=== PATIENT | female | born 1970 | race Caucasian/White ===

== ENCOUNTER 2017-01-03 23:59 | Emergency (ER) | payer MEDICAID ==
--- NOTE | ~2017-01-03 | ER ---
PATIENT'S NAME: KARYN YUSUF [facility] AGE: 46 Y [address] ROOM: [place] [id number] LOCATION: [facility] ADMIT DATE: 01/03/2017 ER/Outpatient Report DISCHARGE DATE: FAMILY PHYSICIAN: Ai Hernandez APRN ATTENDING PHYSICIAN: Iris Monroe HISTORY OF PRESENT ILLNESS: This is a 46-year-old female, who presents today with a chief complaint of left ear pain. She says it started bothering her tonight. For the past few__ days, she has had a dry cough, also sore throat, just feeling really congested. She has been taking Tylenol Flu without improvement of her symptoms, and then today she started developing this left ear pain. She rates it as 9/10. She says she took Tylenol Flu prior to coming in, and says that has not really helped. Denies any fever or chills. No rash. No other complaints at this time. PAST MEDICAL HISTORY: Includes depression, fibromyalgia, asthma, hypertension, hyperlipidemia, hypothyroidism. 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 SOCIAL HISTORY: She smokes 3/4 of pack a day. Uses marijuana occasionally. Drinks occasionally. MEDICATIONS: Please see associated med list. ALLERGIES: PLEASE SEE ASSOCIATED MED LIST. REVIEW OF SYSTEMS: Reviewed by me and negative with the exception of those discussed in the HPI. PHYSICAL EXAMINATION: VITAL SIGNS: The patient is 5 feet 3 inches, she is 114.8 kilos, blood pressure 131/89, heart rate 75, respiratory rate 16, temp 97.2, sats are 93% on room air. GENERAL: The patient looks well. She is nontoxic. She sounds very congested though. HEENT: Pupils equal and reactive to light. She does not have any conjunctivitis. She has no facial tenderness. Her throat is clear. She has PATIENT'S NAME: KARYN YUSUF [facility] AGE: 46 Y [address] ROOM: [place] [id number] LOCATION: [facility] ADMIT DATE: 01/03/2017 ER/Outpatient Report DISCHARGE DATE: FAMILY PHYSICIAN: Ai Hernandez APRN ATTENDING PHYSICIAN: Iris Monroe no cervical lymphadenopathy. The left TM is erythematous and bulging, but there are no signs of otitis externa, and she does not have any exudates and there is no perforation. The right TM is clear. HEART: Regular rate and rhythm. LUNGS: Her lung sounds sound slightly diminished at the bases but otherwise clear. ABDOMEN: Soft, nontender, nondistended. EMERGENCY ROOM COURSE: I discussed with the patient. She appears to have an infection of the left ear. Given her clinical constellation of symptoms, it is likely a viral otitis media. However, it is hard to tell the difference between that and bacterial otitis media. I will write her a script for azithromycin as she is allergic to penicillin. I did discuss that if she does not feel like she has improved with ibuprofen or Tylenol in the next few days, she can start taking these antibiotics. She understands the reasons to come back to the ER sooner. IMPRESSION: Left otitis media. MD ELVIS ARRIOLA/stef /[id number] d: 01/04/17 0339 t: 01/05/17 0406, OUTPATIENT REPORT
[~2017-01-03 23:59] MED LIST: CLARITIN10 MG PO; DAYPRO600 MG PO; LASIX20 MG PO; LYRICA200 MG PO; NORCO 5-325 MG1 TAB PO; NORVASC5 MG PO; PATADAY2.5 ML OPHTH; PRILOSEC20 MG PO; PROAIR HFA8.5 GM INH; PROVENTIL INHAL INH; SINGULAIR10 MG PO; SYNTHROID100 MCG PO; TOPAMAX100 MG PO; VALIUM5 MG PO; VALTREX1000 MG PO
== END 2017-01-04 00:27 | disposition disaster alternative care site (69) ==
LOC: GMED 23:59
DX: H66.92 Otitis media, unspecified, left ear (principal); I10 Essential (primary) hypertension; E78.5 Hyperlipidemia, unspecified; E03.9 Hypothyroidism, unspecified; F32.9 Major depressive disorder, single episode, unspecified; J45.909 Unspecified asthma, uncomplicated; F17.210 Nicotine dependence, cigarettes, uncomplicated; M79.7 Fibromyalgia; Z98.1 Arthrodesis status; Z90.89 Acquired absence of other organs; Z98.890 Other specified postprocedural states; Z88.0 Allergy status to penicillin; Z79.1 Long term (current) use of non-steroidal anti-inflammatories (NSAID); Z79.899 Other long term (current) drug therapy